=== PATIENT | female | born 1950 | race African-American/Black ===

== ENCOUNTER 2017-08-23 16:12 | Emergency (ER) | payer OTHER ==
[~2017-08-23] VITALS: Ht 167.6 cm; Wt 65.0 kg
[2017-08-23 16:17] VITALS: Ht 167.6 cm; Wt 65.0 kg
[2017-08-23 17:14] VITALS: BP 175/101; PULSE 87; RESP 18; TEMP 98
--- NOTE | 2017-08-23 17:39 | RADRPT ---
PROCEDURE: Left wrist radiographs. CLINICAL INDICATION: Trauma due to a fall. Left wrist pain. TECHNIQUE: 4 views. Frontal, lateral, oblique, and scaphoid view. COMPARISON: No prior studies are available for comparison. FINDINGS: There is no fracture or dislocation. The soft tissues are normal. There are degenerative changes of the radiocarpal joint with joint space narrowing and osteophytes. There is widening of the scapholunate joint. There is no lytic or blastic lesion. There is no radiopaque foreign body. IMPRESSION: 1. Chronic changes of the radiocarpal joint and scapholunate joint. 2. No acute fracture or dislocation. 3. Otherwise unremarkable images of the left wrist. RPTAT: QQ .Michael Tesfaye MD, MD Date Time Electronically viewed and signed by .Michael Tesfaye MD, on 08/23/2017 17:39 .R/
--- NOTE | 2017-08-23 17:48 | ERD ---
ER Documentation Chief Complaint Chief Complaint Flu like s/s x 4 days, with headache HPI 66-year-old female with a history of hypertension and rheumatoid arthritis presenting with left wrist pain. I asked her about her chief complaint in triage as she did not tell me about these complaints when I evaluated her. She states that she was sick about a week ago with a cold, but her symptoms have been improving. She had associated headache and productive cough, however she is improving and does not complain of any cough or chest pain at this time. She denies any headache, vision disturbance, focal weakness or numbness. I informed her that her blood pressure was out of control, but the patient states she is taking all of her medications as prescribed. ROS All systems reviewed and are negative except as per history of present illness. Allergies Allergies: Coded Allergies: No Known Allergy (Unverified , 08/23/17) PMhx/Soc Hx Cardiac Disorders: Yes (Hypertension) Hx Miscellaneous Medical Probl: Yes (Rheumatoid arthritis) Hx Alcohol Use: No Hx Substance Use: No Hx Tobacco Use: No Smoking Status: Former smoker FmHx Family History: No diabetes Physical Exam Vitals Vital Signs Date Time Temp Pulse Resp B/P Pulse Ox O2 Delivery O2 Flow Rate FiO2 08/23/17 17:14 98.0 87 18 175/101 99 Room Air 08/23/17 16:17 99.2 93 20 201/116 99 Physical Exam Const: Well-appearing, no apparent distress, nontoxic Head: Atraumatic Eyes: Normal Conjunctiva, PERRLA, EOMI ENT: Normal External Ears, Nose and Mouth. Neck: Full range of motion..~ No meningismus. Resp: Clear to auscultation bilaterally Cardio: Regular rate and rhythm, no murmurs. 2+ distal pulses in all 4 extremities Abd: Soft, non tender, non distended. Normal bowel sounds Skin: No petechiae or rashes Back: No midline or flank tenderness Ext: No cyanosis, or edema. Left wrist with mild swelling over the dorsal aspect of the joint and overlying the distal ulna, nodular and soft when palpating, no overlying warmth or erythema. Normal wrist function. Hand and fingers normal. Neur: Awake and alert Psych: Normal Mood and Affect Procedures/[facility] X-ray left wrist done and shows no acute fractures or dislocations. Chronic arthritic changes noted. [facility] Patient is presenting after a left wrist injury a few week ago. She is concerned as there is an area of swelling, however she is able to use her wrist normally. I reassured her that there is no acute fracture. I suspect that there may be a hematoma in her tendon sheath but there is no evidence of infection. Patient's blood pressure was elevated (>120/80) but appears stable without evidence of hypertension emergency or urgency. The patient was counseled about the risks of hypertension and urged to pursue outpatient monitoring and therapy within a week with their primary care physician. Departure Diagnosis: Primary Impression: Left wrist injury Encounter type: initial encounter Qualified Code: S69.92XA - Injury of left wrist, initial encounter Additional Impression: Recent URI Condition: Stable JUDITH WOOD MD Aug 23, 2017 17:47
== END 2017-08-23 18:00 | disposition home or self-care (01) ==
LOC: E/R 16:12
DX: S69.92XA Unspecified injury of left wrist, hand and finger(s), initial encounter (principal); I10 Essential (primary) hypertension; J06.9 Acute upper respiratory infection, unspecified; R40.2142 Coma scale, eyes open, spontaneous, at arrival to emergency department; R40.2252 Coma scale, best verbal response, oriented, at arrival to emergency department; R40.2362 Coma scale, best motor response, obeys commands, at arrival to emergency department; X58.XXXA Exposure to other specified factors, initial encounter; Y92.9 Unspecified place or not applicable; Z87.891 Personal history of nicotine dependence
CPT/HCPCS: 73110; Z7502